=== PATIENT | female | born 1985 | race Caucasian/White ===

== ENCOUNTER → 2018-12-05 | Outpatient (CLI) | payer BC ==
[2018-12-07 05:15] LABS: CHLAMYDIA TRACHOMATIS, NAA Negative (Negative); NEISSERIA GONORRHOEAE, NAA Negative (Negative)
== END | disposition home or self-care (01) ==
LOC: LAB 14:25 → LAB SHORT 14:25
PROVIDERS: Advanced Practice Midwife
DX: Z11.3 Encounter for screening for infections with a predominantly sexual mode of transmission (principal)
CPT/HCPCS: 87491; 87591

== ENCOUNTER → 2019-01-15 | Outpatient (CLI) | payer BC ==
[2019-01-16 10:40] LABS: Candida species (DNA Probe) Negative (NEGATIVE); G. vaginalis (DNA Probe) Positive (NEGATIVE); T. vaginalis (DNA Probe) Negative (NEGATIVE)
== END | disposition home or self-care (01) ==
LOC: LAB 18:21 → LAB SHORT 18:21
PROVIDERS: Advanced Practice Midwife
DX: N76.0 Acute vaginitis (principal)
CPT/HCPCS: 87480; 87510; 87660

== ENCOUNTER → 2019-07-16 | Outpatient (CLI) | payer BC ==
[2019-07-19 02:07] LABS: CHLAMYDIA TRACHOMATIS, NAA Negative (Negative); NEISSERIA GONORRHOEAE, NAA Negative (Negative)
== END | disposition home or self-care (01) ==
LOC: LAB SHORT 14:36 → LAB 14:36
PROVIDERS: Advanced Practice Midwife
DX: Z11.3 Encounter for screening for infections with a predominantly sexual mode of transmission (principal)
CPT/HCPCS: 87491; 87591

== ENCOUNTER → 2019-07-23 | Outpatient (CLI) | payer BC ==
[2019-07-23 20:27] LABS: Protein, Urine Quantitative 7.2 mg/dL (0.0-11.9)
== END | disposition home or self-care (01) ==
LOC: LAB 17:59 → LAB SHORT 17:59 → EDSTATUS 07-16 15:15 → LAB FUT 07-16 15:15
PROVIDERS: Advanced Practice Midwife
DX: Z34.01 Encounter for supervision of normal first pregnancy, first trimester (principal)
CPT/HCPCS: 81050; 84156

== ENCOUNTER → 2019-11-19 | Outpatient (CLI) | payer BC ==
[2019-11-19 16:18] LABS: Protein, Urine Quantitative 9.4 mg/dL (0.0-11.9)
== END | disposition home or self-care (01) ==
LOC: LAB 07:00 → LAB SHORT 07:00
PROVIDERS: Advanced Practice Midwife
DX: I10 Essential (primary) hypertension (principal)
CPT/HCPCS: 81050; 84156

== ENCOUNTER → 2019-12-21 | Outpatient (CLI) | payer BC | END | disposition home or self-care (01) | LOC: LAB SHORT 11:20 → LAB 11:20 | DX: Z34.83 Encounter for supervision of other normal pregnancy, third trimester (principal) | CPT/HCPCS: 87081; 87653 ==

== ENCOUNTER 2020-01-07 07:14 | Inpatient (IN) | payer BC ==
[~2020-01-07] VITALS: Ht 162.6 cm; Wt 93.2 kg
[2020-01-07] MEDS ORDERED: LABE100 (07:31)
[2020-01-07] MEDS ORDERED: EXPECTA PRENAT1 EACH (07:32)
[2020-01-07 08:10] LABS: BASOPHILS ABSOLUTE AUTO 0.03 K/mm3 (0.00-0.23); BASOPHILS PERCENT AUTO 0 % (0-2); EOSINOPHILS ABSOLUTE AUTO 0.11 K/mm3 (0.00-0.68); EOSINOPHILS PERCENT AUTO 1 % (0-6); Hematocrit 36.5 % (33.0-51.0); Hemoglobin 11.6 g/dL (11.5-16.0); IMMATURE GRAN PERCENT AUTO 1 % (0-1); LYMPHOCYTES ABSOLUTE AUTO 1.89 K/mm3 (0.84-5.20); LYMPHOCYTES PERCENT AUTO 20 % (21-46); MONOCYTES ABSOLUTE AUTO 0.63 K/mm3 (0.16-1.47); MONOCYTES PERCENT AUTO 7 % (4-13); Mean Corpuscular HGB 27.5 pg (26.0-34.0); Mean Corpuscular HGB Conc 31.8 g/dL (31.5-36.5); Mean Corpuscular Volume 87 fL (80-100); Mean Platelet Volume 10.8 fL (9.1-12.4); NEUTROPHILS ABSOLUTE AUTO 6.63 K/mm3 (1.96-9.15); NEUTROPHILS PERCENT AUTO 71 % (41-73); Platelet Count 237 K/mm3 (150-400); RDW Coefficient Variation 13.9 % (11.7-14.2); Red Blood Cell Count 4.22 M/mm3 (3.80-5.20); White Blood Cell Count 9.39 K/mm3 (4.00-11.30)
[2020-01-07 08:20] LABS: Alanine Aminotransfer (ALT/SGP 13 U/L (12-78); Albumin, Blood 2.3 g/dL (3.4-5.0); Albumin/Globulin Ratio 0.6 (0.8-1.8); Alk Phos 202 U/L (50-136); Anion Gap 8 mmol/L (6-16); Aspartate Aminotrans (AST/SGOT 20 U/L (12-37); Bilirubin, Total 0.2 mg/dL (0.1-1.0); Blood Urea Nitrogen 14 mg/dL (8-24); Bun/Creatinine Ratio 21.4 (12.0-20.0); CO2, Blood 21 mmol/L (21-32); Calcium, Blood 7.9 mg/dL (8.5-10.1); Chloride, Blood 110 mmol/L (98-108); Creatinine, Blood 0.65 mg/dL (0.40-1.00); Globulin, Blood 3.9 g/dL (2.2-4.0); Glomerular Filtration Rate >60 (60-); Glucose, Blood 90 mg/dL (70-99); Potassium, Blood 4.1 mmol/L (3.5-5.5); Sodium, Blood 139 mmol/L (136-145); Total Protein, Blood 6.2 g/dL (6.4-8.2)
[2020-01-08 05:20] LABS: Hematocrit 32.7 % (33.0-51.0); Hemoglobin 10.3 g/dL (11.5-16.0); Mean Corpuscular HGB 27.9 pg (26.0-34.0); Mean Corpuscular HGB Conc 31.5 g/dL (31.5-36.5); Mean Corpuscular Volume 89 fL (80-100); Mean Platelet Volume 10.8 fL (9.1-12.4); Platelet Count 183 K/mm3 (150-400); RDW Coefficient Variation 14.1 % (11.7-14.2); RDW Standard Deviation 45.6 fL (35.1-46.3); Red Blood Cell Count 3.69 M/mm3 (3.80-5.20); White Blood Cell Count 11.64 K/mm3 (4.00-11.30)
--- NOTE | 2020-01-08 08:16 | NUR ---
ASSUMED CARE AT 0715- PT LAYING IN BED. REQUESTING SOMETHING STRONGER FOR PAIN, LEVEL 5/10. NEED TO DISCUSS WITH . VERY INSISTANT THAT SHE NEEDS SOMETHING STRONGER, AND HER SEEMS TO BE PUSHING IT WELL. PREVIOUS SHIFT REPORTS IT WAS THE SAME FOR THEIR SHIFT. WHEN IN ROOM, THEY WERE VERY INSISTANT IT WAS NEEDED AND THEY UNDERSTOOD THE "NARCOTIC" ISSUE IN THE WORLD, BUT THEY AREN'T "LIKE THAT." SEEM TO BE APPRIOPRIATE WITH NB, BUT THIS CONVERSATION RAISED SOME FLAGS. MD AWARE AND KNOWS THIS HAS BEEN AN ISSUE PRIOR TO WITH TAKING THINGS STRONGER THAN NEEDED FOR PERIODS. PLANNING TO GO HOME TODAY IF MD ALLOWS.
--- NOTE | 2020-01-08 09:00 | NUR ---
REPORT TO YOLANDA GELLER.
--- NOTE | 2020-01-08 09:22 | NUR ---
PT REPORTS STILL PRETTY PAINFUL. SHE REPORTS JUST GOT DONE AND THAT MADE HER MORE PAINFUL. HAS HEATING PAD ON HER ABD. EXPLAINED WILL MAKE HER CRAMPY AND THE MORE KIDS YOU HAVE THE MORE CRAMPY YOU ARE, EXPLAINED THAT USUSALLY THE CRAMPYNESS CALMS DOWN AFTER 15-20 MINUTES AFTER THE FEED.
--- NOTE | 2020-01-08 21:33 | NUR ---
PT DISCHARGED IN STABLE CONDITION FROM [facility] TO [facility] AT 2[facility]. PT WALKED OIUT AMBULATORY, STEADY GAIT.
== END 2020-01-08 21:30 | disposition home or self-care (01) | DRG 807 ==
LOC: OBS 07:14 → BC 07:24
PROVIDERS: ADMIT Obstetrics & Gynecology
PROC: 10E0XZZ Delivery of Products of Conception, External Approach (ICD-10-PCS; principal; 2020-01-07)
PROC: 0HQ9XZZ Repair Perineum Skin, External Approach (ICD-10-PCS; 2020-01-07)
PROC: 10907ZC Drainage of Amniotic Fluid, Therapeutic from Products of Conception, Via Natural or Artificial Opening (ICD-10-PCS; 2020-01-07)
PROC: 3E033VJ Introduction of Other Hormone into Peripheral Vein, Percutaneous Approach (ICD-10-PCS; 2020-01-07)
PROC: 3E0S3BZ Introduction of Anesthetic Agent into Epidural Space, Percutaneous Approach (ICD-10-PCS; 2020-01-07)
PROC: 00HU33Z Insertion of Infusion Device into Spinal Canal, Percutaneous Approach (ICD-10-PCS; 2020-01-07)
DX: O13.4 Gestational [pregnancy-induced] hypertension without significant proteinuria, complicating childbirth (principal); Z37.0 Single live birth; Z3A.38 38 weeks gestation of pregnancy; O70.0 First degree perineal laceration during delivery; O99.824 Streptococcus B carrier state complicating childbirth; R51 Headache; O26.893 Other specified pregnancy related conditions, third trimester
CPT/HCPCS: 36415; 51702; 80053; 85025; 85027; 86850; 86900; 86901; 90471; 90707; A9270; A9270-GY; J0290; J1885; J2001; J2590; J3010; J7120

== ENCOUNTER 2020-02-18 10:34 | Day surgery (SDC) | payer BC ==
[~2020-02-18] VITALS: Ht 162.6 cm; Wt 87.2 kg
[~2020-02-18 10:34] MED LIST: BUTALB-ACETAMI1 EAC5 PO; EXPECTA PRENAT1 EACH; LABE100
--- NOTE | 2020-02-18 11:11 | NUR ---
Ambulatory in Day Surgery. Surgical site prepped with 2% Chlorhexidine cloth wipe. History, Chart, Medications and Allergies reviewed before start of procedure. Lungs clear T/O to Auscultation. Patient confirms NPO status and agrees with scheduled surgery. Pre-Op teaching done. Pt verbalizes understanding. Patient States Post-Procedure ride home has been arranged. Patient reports completing Chlorhexadine shower X2 prior to admission to hospital.
--- NOTE | 2020-02-18 14:12 | NUR ---
RECEIVED REPORT AND ASSUMED CARE FROM AYDE GUERRERO. PT AWAKE AND ORIENTED. TOLERATING PO INTAKE WITHOUT DIFFICULTY. CALL OUT TO PHARMACY FOT PAIN MED.
--- NOTE | 2020-02-18 14:47 | NUR ---
Ambulatory in Day Surgery Discharge instructions reviewed with patient. Patient verbalizes understanding. Copy given to patient to take home. Dressing to procedure site clean, dry, intact with no visible drainage, swelling, erythema or bruising noted. Patient States Post-Procedure ride home has been arranged. Discharged via wheelchair to private car for ride home. ALL BELONINGS RETUNED TO PATIENT.
== END 2020-02-18 22:38 | disposition home or self-care (01) ==
LOC: ORSCMMR 10:34 → ORD 12:00 → ORSCMMR 22:38
PROVIDERS: Obstetrics & Gynecology
PROC: 0UT74ZZ Resection of Bilateral Fallopian Tubes, Percutaneous Endoscopic Approach (ICD-10-PCS; principal; 2020-02-18 12:00)
DX: Z30.2 Encounter for sterilization (principal)
CPT/HCPCS: 88302; J1100; J1885; J2250; J2370; J2405; J2704; J3010; J7120